=== PATIENT | female | born 1940 | race Caucasian/White ===

== ENCOUNTER 2018-04-08 12:38 | Observation (INO) ==
[2018-04-08] MEDS ORDERED: Gadolinium Contrast Agent (WT Based) IV PRN (13:23)
--- NOTE | 2018-04-08 13:27 | Emergency Department Note ---
Disposition Clinical Impression: Transient cerebral ischemia Qualifiers: Transient cerebral ischemia type: unspecified Qualified Code(s): G45.9 - Transient cerebral ischemic attack, unspecified Disposition: Admitted As Inpatient Condition: Good Instructions: Transient Ischemic Attack (ED) Referrals: NONE,PCP [Primary Care Provider] - Forms: ED Satisfaction Letter Time of Disposition: 15:53 General Adult HPI - General Chief complaint: ED Neuro Symptoms/Deficit Stated complaint: Neuro symptoms Time Seen by Provider: 04/08/18 12:41 Source: patient Limitations: no limitations - History of Present Illness HPI Narrative: This is a 77-year-old female who comes to emergency department reporting weakness in her right hand that started about 40 minutes prior to arrival and resolved after about 30 minutes, and dysarthria as well as a fascia that started about 30 minutes prior to arrival and resolved just after completing a discussion with the legal secretary receptionist in the ED. She still does not feel like she is completely back to normal. No other complaints. Pain Scale: 0 - Related Data Home Medications Medication Instructions Recorded Confirmed Zolpidem [Ambien] 5 mg PO HS PRN 04/08/18 04/08/18 Allergies Allergy/AdvReac Type Severity Reaction Status Date / Time Erythromycin Base Allergy Hives Verified 04/08/18 15:49 hyaluronic acid Allergy Anaphylaxis Verified 04/08/18 15:49 [From Supartz] levofloxacin [From Levaquin] Allergy Hives Verified 04/08/18 15:49 moxifloxacin [From Avelox] Allergy Hives Verified 04/08/18 15:49 simvastatin [From Zocor] Allergy Hives Verified 04/08/18 15:49 Tetracycline Allergy Hives Verified 04/08/18 15:49 All systems ED: reviewed and negative except as stated. Neurological: Reports: weakness, other (Abnormal speech) Past Medical History - Past Medical History Medical history: Reports: hypertension Surgical history: Reports: orthopedic, other Psychiatric history: Reports: anxiety, depression - Social History Smoking Status: Never smoker Smokeless Tobacco Status: No Alcohol use: Reports: none Drug use: Reports: none Physical Exam - General Limitations: no limitations General appearance: alert, in no apparent distress - Head Head exam: atraumatic, normocephalic, normal inspection - Eye Eye exam: Present: normal appearance, PERRL, EOMI - ENT ENT exam: normal exam, normal oropharynx, mucous membranes moist - Neck Neck exam: Present: normal inspection, full ROM, trachea midline - Chest Chest inspection: Present: normal inspection, symmetric chest wall rise - Respiratory Respiratory exam: Present: normal lung sounds bilaterally - Cardiovascular Cardiovascular exam: Present: regular rate, normal rhythm, normal heart sounds - Abdominal Exam Abdominal exam: Present: soft, Non-Tender. Absent: tenderness, distention, guarding, rebound, rigidity - Extremities Exam Extremities exam: Present: normal inspection, full ROM. Absent: tenderness, pedal edema - Neurological Exam Neurological exam: Present: alert, oriented X3, CN II-XII intact - Expanded Neurological Exam Patient oriented to: Present: person, place, time Speech: Present: fluid speech Cranial nerves: EOM function (II, III, IV, ): Normal, facial sensation (V): Normal, facial palsy (VII): Normal, gag reflex (IX): Normal, spinal accessory function (XI): Normal, tongue deviation (XII): Normal Cerebellar function: finger to nose: Normal, heel to munson: Normal Cerebellar function: normal gait Motor strength - LUE: 5/5 Motor strength - RUE: 5/5 Motor strength - LLE: 5/5 Motor strength - RLE: 5/5 Coma Scale Eye Opening: Spontaneous Coma Scale Motor Response: Obeys Commands Coma Scale Verbal Response: Oriented Coma Scale Total: 15 - Psychiatric Psychiatric exam: Present: normal affect, normal mood - Skin Skin exam: Present: warm, dry, intact, normal color Course Course Narrative: This is a 77-year-old female who appears to have suffered a small stroke. Vital Signs Temperature 97.7 F 04/08/18 12:43 Pulse Rate 86 04/08/18 12:43 Respiratory Rate 16 04/08/18 12:43 Blood Pressure 237/96 04/08/18 12:43 O2 Sat by Pulse Oximetry 98 04/08/18 12:43 Temperature 97.7 F 04/08/18 12:43 Pulse Rate 76 04/08/18 15:31 Respiratory Rate 20 04/08/18 15:31 Blood Pressure 213/87 04/08/18 15:31 O2 Sat by Pulse Oximetry 99 04/08/18 15:31 Oxygen Delivery Oxygen Delivery Room Air Medical Decision Making - MDM Narrative Medical decision making narrative: This is a 77-year-old female with the TIA, neurologic symptoms that resolved on their own with an unremarkable MRI. She was given lisinopril and amlodipine to temporize her blood pressure, aspirin for cardiovascular disease prophylaxis, and I discussed her case with the on-call hospitalist, who accepted her for admission - Lab Data Lab results narrative: CBC and BMP were unremarkable Troponin was low INR was normal at 1.2 Result diagrams: 04/08/18 12:57 04/08/18 12:57 Lab Results 04/08/18 04/08/18 04/08/18 Range/Units 12:57 12:57 12:57 WBC 6.8 (4.3-11.1) K/mcL RBC 4.90 (3.82-4.97) M/mcL Hgb 13.3 (11.5-15.4) g/dL Hct 41.1 (35.3-44.9) % MCV 83.9 (83.0-100.0) fL MCH 27.1 L (28.0-33.3) pg MCHC 32.4 (31.6-35.5) g/dL RDW 13.6 (11.5-14.5) % Plt Count 278 (140-400) K/mcL MPV 9.0 L (9.4-12.4) fL Immature Gran % 0.3 (0-4) % Seg Neutrophils % 64.0 % Lymphocytes % 26.2 % Monocytes % 6.1 % Eosinophils % 2.8 % Basophils % 0.6 % Neutrophils # 4.3 (1.6-8.9) K/mcL Lymphocytes # 1.8 (0.6-4.6) K/mcL Monocytes # 0.4 (0.0-1.3) K/mcL Eosinophils # 0.2 (0.0-0.6) K/mcL Basophils # 0.0 (0.0-0.2) K/mcL PT 13.3 H (9.4-12.1) Seconds INR 1.2 Sodium 140 (136-145) mEq/L Potassium 3.9 (3.5-5.1) mEq/L Chloride 108 H (98-107) mEq/L Carbon Dioxide 24 (23-29) mEq/L BUN 18 (8-23) mg/dL Creatinine 0.95 (0.60-1.20) mg/dL Est GFR ( Amer) > 60 (> 60) Est GFR (Non-Af Amer) 57 L (> 60) BUN/Creatinine Ratio 19 (6-26) Glucose 82 (70-105) mg/dL Calculated Osmolality 291 (280-300) Calcium 9.4 (8.6-10.3) mg/dL Troponin I < 0.03 (< 0.04) ng/mL - EKG Data EKG #1 EKG attestation: Yes I reviewed and interpreted this EKG. EKG results narrative: ECG shows sinus rhythm, 85 bpm, R-wave in aVL consistent with LVH, normal intervals, normal axis, normal ST and T waves Critical Care Time Critical Care Time: Yes Total Critical Care Time: 20 Attestation: 20 minutes of critical care time independent of separately billable procedures
[2018-04-08 13:38] LABS: Basophils % 0.6 %; Eosinophils # 0.2 K/mcL (0.0-0.6); Eosinophils % 2.8 %; Hematocrit 41.1 % (35.3-44.9); Hemoglobin 13.3 g/dL (11.5-15.4); Immature Granulocytes % 0.3 % (0-4); Lymphocytes # 1.8 K/mcL (0.6-4.6); Lymphocytes % 26.2 %; Mean Corpuscular HGB Conc 32.4 g/dL (31.6-35.5); Mean Corpuscular Hemoglobin 27.1 pg (28.0-33.3); Mean Corpuscular Volume 83.9 fL (83.0-100.0); Monocytes # 0.4 K/mcL (0.0-1.3); Monocytes % 6.1 %; Neutrophils # 4.3 K/mcL (1.6-8.9); Platelet Count 278 K/mcL (140-400); Red Cell Distribution Width 13.6 % (11.5-14.5)
[2018-04-08 13:45] LABS: INR 1.2; Prothrombin Time 13.3 Seconds (9.4-12.1)
[2018-04-08 13:57] LABS: Troponin I < 0.03 ng/mL (< 0.04)
[2018-04-08 14:13] LABS: BUN/Creatinine Ratio 19 (6-26); Blood Urea Nitrogen 18 mg/dL (8-23); Calcium 9.4 mg/dL (8.6-10.3); Carbon Dioxide 24 mEq/L (23-29); Chloride 108 mEq/L (98-107); Glucose 82 mg/dL (70-105); Osmolality,Calculated 291 (280-300); Potassium 3.9 mEq/L (3.5-5.1); Sodium 140 mEq/L (136-145); eGFR For Non-African Americans 57 (> 60)
[2018-04-08] MEDS ORDERED: Aspirin Enteric Coated 325 MG Tablet PO ONE (15:51)
[2018-04-08] MEDS ORDERED: Naloxone 0.4 MG/ML INJ IVP PRN (17:06)
[2018-04-08] MEDS ORDERED: *HR* Labetalol 20 MG/4 ML SYRINGE IVP PRN ×2 (17:11→17:53)
--- NOTE | 2018-04-08 17:25 | Internal Med History&Physical ---
Date of Encounter: 04/08/18 Time of Encounter: 17:23 Internal Medicine - H&P: HPI Chief complaint: Rt hand weakness and difficulty speaking History of present illness: Ms. Landis is a 77 year old female past medical history of hypertension currently not on any medication, possible hyperlipidemia and remote history of GI bleed came in with complaint of right sided weakness and slurring of speech for about 30 minutes. Patient noticed that while she was having getting her clothes with her right hand she started to feel tingling and numbness in her right hand later progressed to weakness. Few minutes later she started having difficulty speaking which she noticed that she had difficulty getting words out of her mouth. About a week ago patient had difficulty speaking that lasted few minutes. 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 5-10 minutes before reaching ER her symptoms resolved. Total duration was about 30 minutes. She denies any headache, dizziness, vertigo, chest pain, shortness of breath, lightheadedness, blurring of vision, diplopia or any episodes of shaking. Notably she had evaluation with a Holter monitor about 2-3 years ago due to abnormal EKG. She denies any palpitations. She had history of GI bleed more than 10 years ago. Last colonoscopy after that was unremarkable. She denies taking any medication or any other [id number] drugs. She mentioned she had an echocardiogram about 2 years ago which was unremarkable. Past Med Surg Social Fam HX - Past Medical History Medical history: hypertension Psychiatric history: anxiety, depression - Past Surgical History Surgical History: orthopedic, other - Social History Smoking Status: Never smoker Smokeless Tobacco Status: No Alcohol use: none Drug use: none - Family History Father Cause of : lung cancer at 65 Mother Cause of : lung cancer at 67 Internal Medicine - H&P: Meds Zolpidem [Ambien] 5 mg PO HS PRN 04/08/18 [History] 3 Allergy/AdvReac Type Severity Reaction Status Date / Time Erythromycin Base Allergy Hives Verified 04/08/18 15:49 hyaluronic acid Allergy Anaphylaxis Verified 04/08/18 15:49 [From Supartz] levofloxacin [From Levaquin] Allergy Hives Verified 04/08/18 15:49 moxifloxacin [From Avelox] Allergy Hives Verified 04/08/18 15:49 simvastatin [From Zocor] Allergy Hives Verified 04/08/18 15:49 Tetracycline Allergy Hives Verified 04/08/18 15:49 All Systems PM: A 10-system review of systems was performed and is negative for pertinent findings except as documented above in the HPI. - Constitutional Vitals: Temp Pulse Resp BP Pulse Ox 97.7 F 74 19 233/86 100 04/08/18 12:43 04/08/18 17:04 04/08/18 17:04 04/08/18 17:04 04/08/18 17:04 General appearance: Present: A&O X 3, pleasant, no acute distress Exam: Const: Vital signs listed above. Well developed, well nourished and in no acute distress. Alert and oriented Xs 3. No mood disorders noted, calm affect. Eyes: Sclera white, conjunctiva clear, lids are without lag. PERRLA. EOMI. Pupils and irises are equal and round without defect. ENT: TMs intact and clear, normal canals, grossly normal hearing. Oropharanx clear and moist without erythema. Gums pink, good dentition. No carotid bruit. Lymph/Neck: No masses, thyromegaly, or abnormal cervical notes. No bruit. Tracheal midline. Cardio: RRR, Normal S1, S2 w/o murmurs, rubs or gallops. Skin warm and dry. No peripheral edema. Respiratory: Chest symmetrical, respirations non-labored. No dullness or flatness. Clear bilaterally to auscultation, non-tender to palpitation. Musculo: No deformity or scoliosis noted. No vera gait disturbance noted. No cyanosis or edema. Pulses normal in all 4 extremities. No atrophy or abnormal movements. Appropriate muscle strength bilaterally. Neurologic: No focal deficits, cranial nerves II-XII grossly intact with normal sensation, reflexes, coordination, muscle strength and tone. Planter flexor. GI/Abdomen: Soft, non tender, non distended, no hepatosplemomegaly, normal bowel sounds, no masses noted. Internal Med - H&P Results - Labs CBC & Chem 7: 04/08/18 12:57 04/08/18 12:57 - EKG Data EKG shows normal: sinus rhythm, axis Rate: normal - Impressions Sinus rhythm - Assessment and plan (1) Transient cerebral ischemia Current Visit: Yes Status: Acute Assessment and plan: - Patient had an episode of weakness, tingling and numbness that lasted for about 30 minutes. - On examination had complete resolution of her symptoms. - MRI showed no acute intracranial abnormality or acute infarct. Noted chronic lacunar infarct in the left thalamus and mild to moderate chronic microvascular changes - Most likely patient has TIA vs hypertensive emergency. More likely to be TIA given no other endorgan dysfunction and focal neurological symptoms with no acute changes on MRI. ABCD2 score of 4. - Admitted under OBSERVATION. - We will obtain carotid ultrasound and echocardiogram. Lipid profile in the morning fasting. - Keep patient on telemetry. EKG unremarkable. Troponin negative. Stable vitals and no chest pain or shortness of breath - Neurology consulted Qualifiers: Transient cerebral ischemia type: unspecified Qualified Code(s): G45.9 - Transient cerebral ischemic attack, unspecified (2) HTN (hypertension) Current Visit: Yes Status: Acute Assessment and plan: Essential hypertension - elevated with systolic in 200. Currently patient is symptom-free - Of note patient has been on antihypertensive but currently not taking as she was told to stop by PCP few months ago. - Possibly related to stopping of her medication. - Started on lisinopril and amlodipine in the ER. We will continue - labetalol 10 mg when necessary IV for systolic more than 180 Qualifiers: Qualified Code(s): I10 - Essential (primary) hypertension (3) Anxiety Current Visit: Yes Status: Acute Assessment and plan: -Currently not on any medication - We will monitor - Will use home dose of Ambien for insomnia if needed (4) DVT prophylaxis Current Visit: Yes Status: Acute Assessment and plan: - Ambulatory - Low risk - Not indicated - Time Spent With Patient Total time spent is greater than 50% in coordination of care (as documented) at patient's floor/unit and/or counseling patient: - VTE Reasons for not Prescribing Prophylaxis: Treatment not Indicated - Low risk for VTE
[2018-04-08] MEDS ORDERED: *HR* HYDROcodone/Acet 5/325 mg TABLET PO PRN (20:07)
[2018-04-09 04:34] LABS: Chol/HDL Ratio 4.9 (0-4.9)
--- NOTE | 2018-04-09 06:21 | Electrocardiograph Report ---
[facility] Test Date: 2018-04-08 Pat Name: Pari Landis Department: [facility] Room: 3B21 Gender: F Manager Production: : 1940 Requested By: Shay Arevalo Order Number: [id number] Reading MD: Gael Bhatt Measurements Intervals [place] Rate: 85 P: 4 NC: 144 QRS: -29 QRSD: 88 T: 15 QT: 379 QTc: 451 Interpretive Statements Sinus rhythm Left ventricular hypertrophy Electronically Signed On 04-09-2018 6:19:46 EDT by Gael Bhatt
[2018-04-09] MEDS ORDERED: Lisinopril 20 MG TABLET PO SCH (09:00)
[2018-04-09] MEDS ORDERED: amLODIPine 5 MG TABLET PO SCH (09:00)
[2018-04-09] MEDS ORDERED: Aspirin Enteric Coated 81 MG Tablet PO SCH (09:00)
--- NOTE | 2018-04-09 10:36 | Neurology - Consult Note ---
Date of Encounter: 04/09/18 Time of Encounter: 10:00 Assessment and Plan (1) Transient cerebral ischemia Current Visit: Yes Status: Acute She has h/o short term weakness and numbness in her right hand and slurring of speech and right side of face. MRI brain: chronic lacunar infarct in left thalamus Has multiple risk factors: old age, hyperlipidemia, HTN Already on Aspirin 81 mg Now symptoms resolved : no slurring of speech and no numbness and weakness in limb and face We need to work up for TIA /stroke as she had similar symptoms before . Plan: Carotid doppler, Echocardiogram We will monitor Qualifiers: Transient cerebral ischemia type: unspecified Qualified Code(s): G45.9 - Transient cerebral ischemic attack, unspecified History of Present Illness Chief complaint: Weakness in right hand,right side of face and slurring of speech HPI: Ms. Landis is a 77-year-old female presented to [facility] ED for weakness& numbness in her right hand, right side of her face and slurring of speech lasted for about 30 minutes. She is chronic case of HTN without medication and hyperlipidemia . She states that her symptoms resolved after she came to ED . She had similar problem/ Slurring of speech before but resolved itself in about 5 minutes .She denies any palpitation, syncope, seizure like activities, headache, dizziness, vertigo, chest pain, shortness of breath, lightheadedness, blurring of vision, diplopia . Today during my visit,she is lying comfortably in bed .She said her symptoms resolved completely No slurring of speech any more and no numbness and tingling in her face and right hands.Her Vitals 97.7 , pul 73, BP 170/92 MRI brain : No acute intracranial abnormality, no acute infarct,minimal global parenchymal volume loss with [id number] chronic microvascular ischemic change,Chronic lacunar infarct in the left thalamus. She states that her Echo done 2 years back was normal , Her recent Lab results: TLC 6.8, PT 13.3, INR 1.2 ,Na 140, K 3.9 , BUN18, creatinine 0.95 , TG 165, LDL 118, glucose 82 Past Med Surg Social Fam HX - Past Medical History Medical history: hypertension, migraine Psychiatric history: anxiety, depression - Past Surgical History Surgical History: orthopedic, other - Social History Smoking Status: Never smoker Smokeless Tobacco Status: No Alcohol use: none Drug use: none - Family History Father Cause of : lung cancer at 65 Mother Cause of : lung cancer at 67 Medications and Allergies Emerson 5-325 mg 04/08/18 [History] Zolpidem [Ambien] 5 mg PO HS PRN 04/08/18 [History] 3 Allergy/AdvReac Type Severity Reaction Status Date / Time Erythromycin Base Allergy Hives Verified 04/08/18 15:49 hyaluronic acid Allergy Anaphylaxis Verified 04/08/18 15:49 [From Supartz] levofloxacin [From Levaquin] Allergy Hives Verified 04/08/18 15:49 moxifloxacin [From Avelox] Allergy Hives Verified 04/08/18 15:49 simvastatin [From Zocor] Allergy Hives Verified 04/08/18 15:49 Tetracycline Allergy Hives Verified 04/08/18 15:49 All Systems: The remainder of the systems were reviewed and are negative Physical Examination - Vital Signs Vital Signs: Initial Vital Signs Temp Pulse Resp BP Pulse Ox 97.7 F 86 16 237/96 98 04/08/18 12:43 04/08/18 12:43 04/08/18 12:43 04/08/18 12:43 04/08/18 12:43 - Constitutional General appearance: comfortable - Neurologic Sensorimotor examination: intact Detailed motor examination: grossly full strength in all extremities Motor examination - right side: 5/5: deltoids, biceps, triceps, wrist flexion, wrist extension, decorating consultant, hip flexors, tibialis Anterior, quadriceps, toe extension (EHL), plantarflexion Motor examination - left side: 5/5: deltoids, biceps, triceps, wrist flexion, wrist extension, hip flexors, decorating consultant, quadriceps, tibialis Anterior, toe extension (EHL), plantarflexion Detailed sensory examination: intact Reflex and gait examination: intact Reflexes: Biceps: 2+, Triceps: 2+, Brachioradialis: 2+, Patella: 2+, Achilles: 2 + Mental Status Examination: awake, alert, oriented to person, oriented to place, oriented to time, follows commands appropriately, answers questions appropriately, no aphasia Cranial nerve examination: PERRL, EOMI, visual raza intact, sensory to face intact, no facial asymmetry is present, no dysarthria Cerebellar examination: no dysmetria, performs finger to nose and heel to munson symmetrically without ataxia, no gait ataxia Results - Laboratory Findings CBC and BMP: 04/08/18 12:57 04/08/18 12:57 Abnormal lab findings: Abnormal lab results MCH 27.1 pg (28.0-33.3) L 04/08/18 12:57 MPV 9.0 fL (9.4-12.4) L 04/08/18 12:57 PT 13.3 Seconds (9.4-12.1) H 04/08/18 12:57 Chloride 108 mEq/L (98-107) H 04/08/18 12:57 Est GFR (Non-Af Amer) 57 (> 60) L 04/08/18 12:57 Triglycerides 165 mg/dL (< 150) H 04/09/18 03:14 LDL Cholesterol, Calc 118 mg/dL (0-99) H 04/09/18 03:14 VLDL Cholesterol, Calc 33 mg/dL (< 31) H 04/09/18 03:14 HDL Cholesterol 39 mg/dL (40-59) L 04/09/18 03:14 Consult Discharge Plan - Plan Referrals: NONE,PCP [Primary Care Provider] -
[2018-04-09 11:30] VITALS: BP 148/86
[2018-04-09] MEDS ORDERED: Lisinopril 20 MG TABLET PO ONE (15:51)
[2018-04-09] MEDS ORDERED: amLODIPine 5 MG TABLET PO ONE (15:51)
--- NOTE | 2018-04-09 15:53 | Discharge Summary ---
- NOTES TO OUTPATIENT PROVIDER Notes to Outpatient Provider: Started on Pravstatin, lisinopril and amlodipine. Needs f/u bmp for monitoring. Date of Encounter: 04/09/18 Time of Encounter: 15:48 - Discharge Diagnosis (1) Transient cerebral ischemia Priority: Primary Status: Acute Qualifiers: Transient cerebral ischemia type: unspecified Qualified Code(s): G45.9 - Transient cerebral ischemic attack, unspecified (2) HTN (hypertension) Priority: Secondary Status: Acute Qualifiers: Qualified Code(s): I10 - Essential (primary) hypertension (3) Anxiety Priority: Secondary Status: Acute (4) DVT prophylaxis Priority: Secondary Status: Acute Hospital course: Ms. Landis is a 77 year old female admitted for TIA. MRI negative for acute infarct. Carotid duplex and ECHO unremarkable. Started on treatment for BP with lisinopril and amlodipine, pravastatin for hyperlipidemia given muscle cramps with other statin. Started on aspirin for secondary prevention. - Time Spent with Patient Total time spent providing and/or coordinating discharge services: Greater than 30 minutes - Discharge Medications Prescriptions: amLODIPine [Norvasc] 5 mg PO DAILY 30 Days #30 tablet Aspirin Enteric Coated [Aspirin EC] 81 mg PO DAILY 30 Days #30 tablet. Lisinopril [Zestril] 20 mg PO DAILY 30 Days #30 tablet Pravastatin Sodium [Pravachol] 20 mg PO DAILY 30 Days #30 tablet Home Medications: Aspirin Enteric Coated [Aspirin EC] 81 mg PO DAILY 30 Days #30 tablet. [Rx] Lisinopril [Zestril] 20 mg PO DAILY 30 Days #30 tablet 04/09/18 [Rx] Pravastatin Sodium [Pravachol] 20 mg PO DAILY 30 Days #30 tablet 04/09/18 [Rx] amLODIPine [Norvasc] 5 mg PO DAILY 30 Days #30 tablet 04/09/18 [Rx] Allergies/Adverse Reactions: 3 Allergy/AdvReac Type Severity Reaction Status Date / Time Erythromycin Base Allergy Hives Verified 04/08/18 15:49 hyaluronic acid Allergy Anaphylaxis Verified 04/08/18 15:49 [From Supartz] levofloxacin [From Levaquin] Allergy Hives Verified 04/08/18 15:49 moxifloxacin [From Avelox] Allergy Hives Verified 04/08/18 15:49 simvastatin [From Zocor] Allergy Hives Verified 04/08/18 15:49 Tetracycline Allergy Hives Verified 04/08/18 15:49 Date of admission: 04/08/18 16:17 Primary care physician: PCP NONE Consults: 04/08/18 17:34 Consult to Neurology [CONS] Routine Consulting Provider: Neurology [facility] Reason for Consult: TIA Time Notified: 17:34 Call Completed: No Discharging clinician: Velvet Padilla - Constitutional Vitals: Temp Pulse Resp BP Pulse Ox 97.7 F 71 16 148/86 98 04/09/18 11:29 04/09/18 11:29 04/09/18 11:29 04/09/18 11:29 04/09/18 11:29 General appearance: Present: A&O X 3, pleasant, no acute distress Exam: Const: Vital signs listed above. Well developed, well nourished and in no acute distress. Alert and oriented Xs 3. No mood disorders noted, calm affect. Eyes: Sclera white, conjunctiva clear, lids are without lag. PERRLA. EOMI. Pupils and irises are equal and round without defect. ENT: TMs intact and clear, normal canals, grossly normal hearing. Oropharanx clear and moist without erythema. Gums pink, good dentition. No carotid bruit. Lymph/Neck: No masses, thyromegaly, or abnormal cervical notes. No bruit. Tracheal midline. Cardio: RRR, Normal S1, S2 w/o murmurs, rubs or gallops. Skin warm and dry. No peripheral edema. Respiratory: Chest symmetrical, respirations non-labored. No dullness or flatness. Clear bilaterally to auscultation, non-tender to palpitation. Musculo: No deformity or scoliosis noted. No vera gait disturbance noted. No cyanosis or edema. Pulses normal in all 4 extremities. No atrophy or abnormal movements. Appropriate muscle strength bilaterally. Neurologic: No focal deficits, cranial nerves II-XII grossly intact with normal sensation, reflexes, coordination, muscle strength and tone. Planter flexor. GI/Abdomen: Soft, non tender, non distended, no hepatosplemomegaly, normal bowel sounds, no masses noted. - Patient Status Disposition: Home, Self-Care Condition: Good - Discharge Instructions Follow Up With: NONE,PCP [Primary Care Provider] - - Diet and Activity Activity: resume usual activities as tolerated - VTE Reasons for not Prescribing Prophylaxis: Treatment not Indicated - Low risk for VTE
== END 2018-04-09 16:25 | disposition home or self-care (01) ==
LOC: 3BNU 12:38 → EMEROOARM 12:38 → SUATTDRO 16:17 → 3BNU 17:05
PROVIDERS: ADMIT Internal Medicine; ATTEND Internal Medicine